=== PATIENT | male | born 1975 | race Caucasian/White ===

== ENCOUNTER 2020-03-24 17:47 | Emergency (ER) | payer BC ==
[2020-03-24 17:59] VITALS: BP 117/78; PULSE 94
--- NOTE | 2020-03-24 19:08 | CR ---
[id number] RAD/RAD Foot Right 3V Min Exam: RAD Foot Right 3V Min Indication:PAIN, INJURY. PAIN IN LATERAL FOOT. Comparison: No prior imaging for comparison. Discussion: No acute fracture or dislocation. No AVN or erosive changes. Joint spaces are well-preserved. Impression: No acute findings. Brian Sorto MD 03/24/20 0112 Thank you for allowing us to participate in the care of your patient.
--- NOTE | 2020-03-24 19:19 | EDM.PDOC ---
ED HPI GENERAL MEDICAL PROBLEM - General Chief Complaint: Lower Extremity Injury/Pain Stated Complaint: RIGHT KNEE RIGHT FOOT INJURY Time Seen by Provider: 03/24/20 17:58 Source of Information: Reports: Patient History Limitations: Reports: No Limitations - History of Present Illness INITIAL COMMENTS - FREE TEXT/NARRATIVE: Patient presents with right lateral foot pain after falling off a small step- ladder and landing on his right foot. He isn't sure just how he landed but it really hurts now. He says he has mild pain in the knee too but no other injuries or pain. He says the knee is really okay. 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) Right Knee Pain Score (Numeric/FACES): 7 Right Feet Pain Score (Numeric/FACES): 7 - Related Data Allergies Allergy/AdvReac Type Severity Reaction Status Date / Time No Known Drug Allergies Allergy none Verified 03/24/20 17:59 Home Meds: Home Meds ALPRAZolam [Alprazolam] 0.5 mg PO TID 05/04/14 [History] Omeprazole 20 mg PO DAILY 05/04/14 [History] lisinopriL [Prinivil] 20 mg PO DAILY 05/04/14 [History] Citalopram [Citalopram HBr] 20 mg PO DAILY 03/24/20 [History] allopurinoL [Zyloprim] 100 mg PO DAILY 03/24/20 [History] Past Medical History HEENT History: Reports: Impaired Vision Cardiovascular History: Reports: Hypertension Gastrointestinal History: Reports: Hiatal Hernia Musculoskeletal History: Reports: Fracture, Gout Psychiatric History: Reports: Anxiety, Depression - Past Surgical History Head Surgeries/Procedures: Reports: None Cardiovascular Surgical History: Reports: None GI Surgical History: Reports: Colonoscopy Musculoskeletal Surgical History: Reports: Shoulder Surgery Social & Family History - Living Situation & Occupation Living situation: Reports: Occupation: Employed Review of Systems - Review of Systems Review Of Systems: See Below Constitutional: Denies: Chills, Diaphoresis, Fever Eyes: Denies: Vision Change Ears: Reports: No Symptoms Nose: Reports: No Symptoms Mouth/Throat: Reports: No Symptoms Respiratory: Denies: Shortness of Breath, Cough Cardiovascular: Denies: Chest Pain, Syncope GI/Abdominal: Denies: Abdominal Pain, Vomiting Genitourinary: Denies: Incontinence Musculoskeletal: Reports: Foot Pain. Denies: Neck Pain, Shoulder Pain, Arm Pain, Back Pain, Hand Pain, Leg Pain Skin: Denies: Cyanosis, Jaundice, Mottled, Pallor, Diaphoresis Neurological: Denies: Confusion, Dizziness, Headache, Seizure, Syncope, Trouble Speaking ED EXAM, GENERAL - Physical Exam Exam: See Below Exam Limited By: No Limitations General Appearance: Alert, WD/WN, No Apparent Distress Eye Exam: Bilateral Eye: EOMI, Normal Inspection, PERRL Ears: Normal External Exam, Hearing Grossly Normal Nose: Normal Inspection, No Blood Throat/Mouth: Normal Inspection, Normal Voice, No Airway Compromise Head: Atraumatic, Normocephalic Neck: Normal Inspection, Full Range of Motion. No: Tender Lateral, Tender Midline Respiratory/Chest: No Respiratory Distress, Lungs Clear, Normal Breath Sounds, No Accessory Muscle Use Cardiovascular: Regular Rate, Rhythm, No Murmur Back Exam: Normal Inspection, Full Range of Motion. No: Paraspinal Tenderness, Vertebral Tenderness Extremities: No Pedal Edema, Normal Capillary Refill, Other (Palpation of right foot is tender at proximal 5 metatarsal. No deformity, crepitus, ecchymosis or swelling. Ankle and knee exam are normal.) Neurological: Alert, Oriented, Normal Cognition, No Motor/Sensory Deficits Psychiatric: Normal Affect, Normal Mood Skin Exam: Warm, Dry, Intact, Normal Color, No Rash Course - Vital Signs Last Recorded V/S: Last Vital Signs Temp 97.5 F 03/24/20 17:55 Pulse 94 03/24/20 17:55 Resp 18 03/24/20 17:55 BP 117/78 03/24/20 17:55 Pulse Ox 92 L 03/24/20 17:55 - Re-Assessments/Exams Free Text/Narrative Re-Assessment/Exam: 03/24/20 19:19 Xrays show no fracture or other acute pathology. Discussed findings with patient. He will need crutches for a few days due to pain with WTB. These are fitted for him. A friend is picking him up. Pt stable at discharge. Departure - Departure Time of Disposition: 19:12 Disposition: Home, Self-Care 01 Condition: Good Clinical Impression: Right foot injury Qualifiers: Encounter type: initial encounter Qualified Code(s): S99.921A - Unspecified injury of right foot, initial encounter - Discharge Information Instructions: Foot Sprain Referrals: Kaylee Rios PA-C [Primary Care Provider] - Additional Instructions: Use ARIANA wrap and ice pack 2-3 x/day, as long as needed to control swelling. You can use Ibuprofen 600 mg three times a day as needed for pain control. Use the crutches for weight-bearing until you can put weight on the foot without pain. Follow up with your PCP if not better in a week. Sepsis Event Note (ED) - Evaluation Sepsis Screening Result: No Definite Risk - Focused Exam Vital Signs: Vital Signs Temp Pulse Resp BP Pulse Ox 03/24/20 17:55 97.5 F 94 18 117/78 92 L
== END 2020-03-24 19:35 | disposition home or self-care (01) ==
LOC: KA.ED 17:47
DX: S99.921A Unspecified injury of right foot, initial encounter (principal); M10.9 Gout, unspecified; I10 Essential (primary) hypertension; F41.9 Anxiety disorder, unspecified; F32.9 Major depressive disorder, single episode, unspecified; Z79.899 Other long term (current) drug therapy; W11.XXXA Fall on and from ladder, initial encounter
CPT/HCPCS: 73630-RT; 99283

== ENCOUNTER 2023-10-10 09:05 | Inpatient (IN) | payer BC ==
[2023-10-10 09:28] LABS: BASOPHILS ABSOLUTE AUTO 0.04 10^3/uL (0.00-0.10); BASOPHILS PERCENT AUTO 0.1 % (0.0-1.0); EOSINOPHILS ABSOLUTE AUTO 0.01 10^3/uL (0.10-0.30); HEMATOCRIT 55.7 % (40.0-52.0); HEMOGLOBIN 19.2 g/dL (13.0-17.0); IMMATURE GRAN ABSOLUTE AUTO 0.17 10^3/uL (0.00-0.50); IMMATURE GRAN PERCENT AUTO 0.6 % (0.0-5.0); LYMPHOCYTES ABSOLUTE AUTO 2.77 10^3/uL (1.00-4.00); LYMPHOCYTES PERCENT AUTO 10.3 % (20.0-40.0); MEAN CORPUSCULAR HEMOGLOBIN 31.2 pg (27.0-31.0); MEAN CORPUSCULAR HGB CONC 34.5 g/dL (32.0-36.0); MEAN CORPUSCULAR VOLUME 90.6 fL (82.0-92.0); MEAN PLATELET VOLUME 9.1 fL (7.4-10.4); MONOCYTES ABSOLUTE AUTO 2.94 10^3/uL (0.10-0.80); NEUTROPHILS ABSOLUTE AUTO 20.86 10^3/uL (2.50-7.00); PLATELET COUNT,PLT 211 10^3/uL (150-400); RED BLOOD CELL COUNT 6.15 10^6/uL (4.50-6.00); RED CELL DISTRIBUTION WIDTH 12.9 % (11.5-14.5); WHITE BLOOD CELL COUNT,WBC 26.79 10^3/uL (5.00-10.00)
[2023-10-10] MEDS: Sodium Chloride 0.9% 50 ML IV SCH (09:38)
[2023-10-10] MEDS: Iopamidol 755 Mg/ML 100 ML Bottle IV ONE (09:38)
[2023-10-10 09:46] LABS: ALANINE AMINOTRANSFERASE,ALT 33 U/L (14-63); ALBUMIN 3.65 g/dL (3.40-5.00); ALKALINE PHOSPHATASE 114 U/L (46-116); ANION GAP 16.3 mmol/L (5-15); ASPARTATE AMNIOTRANSFERASE,AST 21 U/L (15-37); BILIRUBIN TOTAL 1.4 mg/dL (0.2-1.0); BLOOD UREA NITROGEN,BUN 17 mg/dL (7-18); CALCIUM 9.3 mg/dL (8.7-10.3); CARBON DIOXIDE,CO2 24.1 mmol/L (21.0-32.0); CHLORIDE,CL 95 mmol/L (98-107); CREATININE 0.86 mg/dL (0.51-1.17); GLUCOSE RANDOM 132 mg/dL (70-140); POTASSIUM,K 4.4 mmol/L (3.5-5.1); PROTEIN TOTAL,TP 8.2 g/dL (6.4-8.2); SODIUM,NA 131 mmol/L (136-145)
[2023-10-10 09:47] LABS: ESTIMATED GFR 107 mL/min (>=60)
[2023-10-10] MEDS: cefTRIAXone 2 GM Vial IVPUSH ONE (10:27)
[2023-10-10] MEDS: Ketorolac 30 MG/ML SDV IVPUSH ONE (11:16)
[2023-10-10] MEDS ORDERED: Acetaminophen 325 MG Tab PO PRN (14:06)
[2023-10-10] MEDS: Gabapentin 300 MG Cap PO SCH (14:11)
[2023-10-10] MEDS: ALPRAZolam 0.25 MG Tab PO SCH (14:11)
[2023-10-10] MEDS: Sodium Chloride 0.9% 1,000 ML IV SCH (14:12)
[2023-10-10] MEDS: ceFAZolin 2 GM in Sodium Chloride 0.9% 100 ML IV SCH ×2 (14:38→17:22)
[2023-10-11] MEDS: Citalopram 20 MG Tab PO SCH (06:04)
[2023-10-11] MEDS: Allopurinol 100 MG Tab PO SCH (06:04)
[2023-10-11] MEDS: Omeprazole 20 MG Cap.CR PO SCH (06:05)
[2023-10-11] MEDS: Lisinopril 20 MG Tab PO SCH (06:05)
[2023-10-11 07:31] LABS: HEMATOCRIT 53.6 % (40.0-52.0); HEMOGLOBIN 17.9 g/dL (13.0-17.0); MEAN CORPUSCULAR HEMOGLOBIN 30.9 pg (27.0-31.0); MEAN CORPUSCULAR HGB CONC 33.4 g/dL (32.0-36.0); MEAN CORPUSCULAR VOLUME 92.6 fL (82.0-92.0); MEAN PLATELET VOLUME 9.1 fL (7.4-10.4); PLATELET COUNT,PLT 178 10^3/uL (150-400); RED BLOOD CELL COUNT 5.79 10^6/uL (4.50-6.00); RED CELL DISTRIBUTION WIDTH 13.3 % (11.5-14.5)
[2023-10-11 07:47] LABS: ALBUMIN 3.07 g/dL (3.40-5.00); ANION GAP 12.7 mmol/L (5-15); BILIRUBIN TOTAL 0.8 mg/dL (0.2-1.0); CALCIUM 8.6 mg/dL (8.7-10.3); CARBON DIOXIDE,CO2 28.9 mmol/L (21.0-32.0); CREATININE 0.77 mg/dL (0.51-1.17); EST CRCL DRUG DOSING (CG) 118.6 mL/min; POTASSIUM,K 4.6 mmol/L (3.5-5.1); PROTEIN TOTAL,TP 7.2 g/dL (6.4-8.2)
[2023-10-11] MEDS: Ketorolac 30 MG/ML SDV IVPUSH PRN (09:09)
[2023-10-12 07:37] LABS: HEMATOCRIT 51.3 % (40.0-52.0); HEMOGLOBIN 17.2 g/dL (13.0-17.0); MEAN CORPUSCULAR HGB CONC 33.5 g/dL (32.0-36.0); MEAN CORPUSCULAR VOLUME 92.4 fL (82.0-92.0); MEAN PLATELET VOLUME 9.2 fL (7.4-10.4); PLATELET COUNT,PLT 175 10^3/uL (150-400); RED BLOOD CELL COUNT 5.55 10^6/uL (4.50-6.00); RED CELL DISTRIBUTION WIDTH 12.9 % (11.5-14.5); WHITE BLOOD CELL COUNT,WBC 10.16 10^3/uL (5.00-10.00)
[2023-10-12 07:52] LABS: ALBUMIN 3.03 g/dL (3.40-5.00); ANION GAP 13.5 mmol/L (5-15); BILIRUBIN TOTAL 0.5 mg/dL (0.2-1.0); CALCIUM 8.6 mg/dL (8.7-10.3); CARBON DIOXIDE,CO2 26.9 mmol/L (21.0-32.0); CREATININE 0.68 mg/dL (0.51-1.17); EST CRCL DRUG DOSING (CG) 134.3 mL/min; POTASSIUM,K 4.4 mmol/L (3.5-5.1); PROTEIN TOTAL,TP 6.9 g/dL (6.4-8.2)
[2023-10-12 10:53] VITALS: BP 121/83; PULSE 74
== END 2023-10-12 12:27 | disposition home or self-care (01) | DRG 383 ==
LOC: KA.ED 09:05 → KA.MS 12:18
PROVIDERS: ADMIT Internal Medicine; ATTEND Internal Medicine
DX: L03.213 Periorbital cellulitis (principal); I10 Essential (primary) hypertension; M10.9 Gout, unspecified; F32.A Depression, unspecified; F41.9 Anxiety disorder, unspecified; D72.829 Elevated white blood cell count, unspecified; E66.9 Obesity, unspecified; F17.210 Nicotine dependence, cigarettes, uncomplicated; Z79.899 Other long term (current) drug therapy; Z87.81 Personal history of (healed) traumatic fracture; Z98.890 Other specified postprocedural states; Z68.32 Body mass index [BMI] 32.0-32.9, adult
CPT/HCPCS: 36415; 70487; 80053; 83605; 85025; 85027; 87040; 99284; A9270-GY; J0690; J0696; J1885; J3490; J7030; Q3014; Q9967